=== PATIENT | male | born 1990 | race Caucasian/White ===

== ENCOUNTER 2022-09-08 10:17 | Emergency (ER) | payer SELFPAY ==
[~2022-09-08] VITALS: Ht 175.3 cm; Wt 68.0 kg
[2022-09-08 10:22] VITALS: BP_SYST 138
[2022-09-08 10:52] LABS: BASOPHILS % (AUTO) 0.2 % (0.0-2.0); EOSINOPHILS # (AUTO) 0.3 K/uL (0.0-0.4); EOSINOPHILS % (AUTO) 1.9 % (0.0-4.0); HEMATOCRIT 37.2 % (36-54); HEMOGLOBIN 12.8 g/dL (14.0-18.0); LYMPHOCYTES # (AUTO) 0.9 K/uL (1.0-5.5); LYMPHOCYTES % (AUTO) 5.6 % (20.5-51.5); MEAN CORPUSCULAR HEMOGLOBIN 29 pg (27-31); MEAN CORPUSCULAR HGB CONC 34 % (32-36); MEAN CORPUSCULAR VOLUME 83 fL (79.0-98.0); MONOCYTES # (AUTO) 1.5 K/uL (0.0-1.0); NEUTROPHILS % (AUTO) 83.3 % (40.0-70.0); PLATELET COUNT (AUTO) 245 K/uL (130-430); RED BLOOD CELL COUNT(AUTO) 4.48 MIL/uL (4.2-6.2); RED CELL DISTRIBUTION WIDTH 12.7 % (9.0-15.0); WHITE BLOOD COUNT (AUTO) 16.8 K/uL (4.8-10.8)
[2022-09-08 11:06] LABS: CALCIUM 9.4 mg/dL (8.4-11.0); CREATININE 1.01 mg/dL (0.55-1.30)
[2022-09-08 11:10] LABS: ALBUMIN 3.6 g/dL (3.4-4.8); TOTAL BILIRUBIN 0.4 mg/dL (0.0-1.0)
[2022-09-08 11:57] LABS: BARBITURATE, URINE NEGATIVE (NEG <=200); BENZODIAZEPINE, URINE POSITIVE (NEG <=150); CANNABINOID, URINE NEGATIVE (NEG <=50); COCAINE, URINE NEGATIVE (NEG <=150); METHAMPHETAMINES SCREEN,URINE POSITIVE (NEG <=500); OPIATE, URINE NEGATIVE (NEG <=100); PHENCYCLIDINE SCREEN,URINE NEGATIVE (NEG <=25); UR TRICYCLIC ANTIDEPRESSANTS NEGATIVE (NEG <=300); URINE AMPHETAMINE POSITIVE (NEG <=500); URINE METHADONE NEGATIVE (NEG <=200); URINE OXYCODONE SCREEN NEGATIVE (NEG <=100); URINE PROPOXYPHENE SCREEN NEGATIVE (NEG <=300)
[2022-09-08] MEDS ORDERED: NALOXONE HCL 2 MG/2 ML SYR (NARCAN) IM ONE (13:00)
[2022-09-08] MEDS ORDERED: NALOXONE HCL 2 MG/2 ML SYR ONE (13:03)
[2022-09-08] MEDS ORDERED: NACL 0.9% 1,000 ML IV ONE (14:15)
[2022-09-08] MEDS ORDERED: NS 500 ML IV ONE (18:00)
[2022-09-09 07:30] VITALS: BP_SYST 120
== END 2022-09-09 11:08 | disposition home or self-care (01) ==
LOC: SED 10:17 → EDBD 10:17 → SED 09-09 11:08
DX: E86.0 Dehydration (principal); F19.10 Other psychoactive substance abuse, uncomplicated; F12.90 Cannabis use, unspecified, uncomplicated; Z79.899 Other long term (current) drug therapy
CPT/HCPCS: 99285; 96360; 96361; 70450; 80307; 80053; 85025; 36415; 76376; 96372; J2310; J7030